=== PATIENT | male | born 1980 | race Two or more races ===

== ENCOUNTER → 2021-11-16 | Emergency (ER) | payer OTHER ==
[~2021-11-16] VITALS: Ht 172.7 cm; Wt 70.3 kg
== END | disposition home or self-care (01) ==
LOC: ER 20:55
DX: S91.011A Laceration without foreign body, right ankle, initial encounter (principal); W19.XXXA Unspecified fall, initial encounter; Y93.89 Activity, other specified; Y92.832 Beach as the place of occurrence of the external cause; Z88.6 Allergy status to analgesic agent

== ENCOUNTER 2022-09-11 18:33 | Emergency (ER) | payer OTHER ==
[~2022-09-11] VITALS: Ht 172.7 cm; Wt 68.9 kg
== END 2022-09-11 21:41 | disposition home or self-care (01) ==
LOC: ER 18:33
DX: S40.011A Contusion of right shoulder, initial encounter (principal); W19.XXXA Unspecified fall, initial encounter; Y93.89 Activity, other specified; Y92.89 Other specified places as the place of occurrence of the external cause; Y99.9 Unspecified external cause status; Z88.6 Allergy status to analgesic agent; Z88.8 Allergy status to other drugs, medicaments and biological substances